=== PATIENT | female | born 1955 | race Two or more races ===

== ENCOUNTER 2022-10-16 11:21 | Emergency (ER) | payer OTHER ==
[~2022-10-16] VITALS: Ht 170.2 cm; Wt 54.4 kg
[2022-10-16] MEDS ORDERED: LEXAPRO20 MG PO (11:41)
[2022-10-16] MEDS ORDERED: LEXAPRO5 MG PO (11:41)
== END 2022-10-16 17:46 | disposition home or self-care (01) ==
LOC: ER 11:21
DX: U07.1 COVID-19 (principal); S01.01XA Laceration without foreign body of scalp, initial encounter; S09.90XA Unspecified injury of head, initial encounter; W18.39XA Other fall on same level, initial encounter; Y93.89 Activity, other specified; Y92.098 Other place in other non-institutional residence as the place of occurrence of the external cause; Y99.8 Other external cause status

== ENCOUNTER 2022-10-25 11:29 | Emergency (ER) | payer OTHER ==
[~2022-10-25] VITALS: Ht 170.2 cm; Wt 54.9 kg
[~2022-10-25 11:29] MED LIST: LEXAPRO20 MG PO; LEXAPRO5 MG PO
== END 2022-10-25 12:57 | disposition home or self-care (01) ==
LOC: ER 11:29
DX: T81.89XA Other complications of procedures, not elsewhere classified, initial encounter (principal)

== ENCOUNTER 2022-10-30 09:08 | Emergency (ER) | payer OTHER ==
[~2022-10-30] VITALS: Ht 162.6 cm; Wt 50.8 kg
== END 2022-10-30 10:50 | disposition home or self-care (01) ==
LOC: ER 09:08
DX: Z48.02 Encounter for removal of sutures (principal)